=== PATIENT | female | born 1945 | race African-American/Black ===

== ENCOUNTER 2018-05-19 10:15 | Inpatient (IN) | payer MEDICARE, MEDICAID ==
--- NOTE | 2018-05-19 10:44 | ED Physician Chart ---
ED Chief Complaint/HPI - Patient Information Date Seen:: 05/19/18 Time Seen:: 10:40 Chief Complaint:: generalized weakness History of Present Illness:: Patient's had generalized weakness for one week with frequent falls. Allergies:: Allergies Allergy/AdvReac Type Severity Reaction Status Date / Time No Known Allergies Allergy Verified 05/19/18 10:22 Vitals:: Vital Signs - 8 hr 05/19/18 10:15 Temp 97.7 F HR 72 RR 16 BP 89/55 O2 Sat % 98 Historian:: Patient, EMS Review:: Transfer documents Reviewed ED Review of Systems - Review of Systems General/Constitutional: Weakness Skin: No skin lesions Head: No headache Eyes: No loss of vision ENT: No earache Neck: No neck pain, No swelling Cardio Vascular: No chest pain, No palpitations Pulmonary: No SOB, No cough GI: No nausea, No vomiting, No diarrhea G/U: No dysuria Musculoskeletal: No bone or joint pain, No back pain, No muscle pain Endocrine: No polyuria Psychiatric: No prior psych history Hematopoietic: No bruising Allergic/Immuno: No urticaria Neurological: No syncope ED Past Medical History - Past Medical History Past Medical History: HTN, Asthma/COPD, CVA/TIA, Arthritis Family History: HTN Social History: Smoker, Other (smokes one pack of cigarettes a day; formerly drank wine) Surgical History: other (gastric stapling) Psychiatricy History: None Medication: Reviewed Family Medical History - Family Member Mother History Unknown: Yes ED Physical Exam - Physical Examination General/Constitutional: Awake, Well-developed, well-nourished, Alert Other Gen/Cons comments:: States the date is 05/13/2017 Head: Atraumatic Eyes: Lids, conjuctiva normal, PERRL Skin: Nl inspection, No rash ENMT: External ears, nose nl, TM canals nl, Nasal exam nl, Oropharynx nl Other ENMT comments:: Edentulous Neck: No nuchal rigidity Respiratory: Nl effort/Exclusion, Clear to Auscultation, No Wheeze/Rhonchi/Rales Cardio Vascular: RRR GI: No organomegaly, No hernia, Normal BS's, Nondistended, No mass/bruits Other GI comments:: suprapubictenderness : No CVA tenderness Extremities: Normal digits & nails Neuro/Psych: No focal deficits Misc: Normal back ED Labs/Radiology/EKG Results - Lab Results Results: Laboratory Results WBC 8.2 Th/cmm (4.8-10.8) 05/19/18 10:51 RBC 3.99 Mil/cmm (3.80-5.20) 05/19/18 10:51 Hgb 12.3 gm/dL (12-16) 05/19/18 10:51 Hct 38.0 % (41.0-60) L 05/19/18 10:51 MCV 95.3 fl (81-100) 05/19/18 10:51 MCH 30.9 pg (27.0-31.0) 05/19/18 10:51 MCHC Differential 32.5 pg (28.0-36.0) 05/19/18 10:51 RDW 12.2 % (11.5-20.0) 05/19/18 10:51 Plt Count 185 Th/cmm (150-400) 05/19/18 10:51 MPV 9.6 fl 05/19/18 10:51 Neutrophils % 66.8 % (40.0-80.0) 05/19/18 10:51 Lymphocytes % 22.5 % (20.0-50.0) 05/19/18 10:51 Monocytes % 8.3 % (2.0-10.0) 05/19/18 10:51 Eosinophils % 1.8 % (0.0-5.0) 05/19/18 10:51 Basophils % 0.6 % (0.0-2.0) 05/19/18 10:51 Sodium 137 mEq/L (136-145) 05/19/18 10:51 Potassium 2.6 mEq/L (3.5-5.1) L* 05/19/18 10:51 Chloride 100 mEq/L (98-107) 05/19/18 10:51 Carbon Dioxide 23.1 mEq/L (21.0-31.0) 05/19/18 10:51 Anion Gap 16.5 (7.0-16.0) H 05/19/18 10:51 BUN 81 mg/dL (7-25) H* 05/19/18 10:51 Creatinine 3.4 mg/dL (0.6-1.2) H 05/19/18 10:51 Est GFR ( Amer) TNP 05/19/18 10:51 Est GFR (Non-Af Amer) TNP 05/19/18 10:51 BUN/Creatinine Ratio 23.8 05/19/18 10:51 Glucose 133 mg/dL (70-105) H 05/19/18 10:51 Calcium 9.9 mg/dL (8.6-10.3) 05/19/18 10:51 Magnesium 3.0 mg/dL (1.9-2.7) H 05/19/18 10:51 Urine Source RANDOM 05/19/18 11:00 Urine Color YELLOW 05/19/18 11:00 Urine Clarity HAZY (CLEAR) 05/19/18 11:00 Urine pH 6.0 (4.6 - 8.0) 05/19/18 11:00 Ur Specific [place] 1.010 (1.005-1.030) 05/19/18 11:00 Urine Protein NEGATIVE mg/dL (NEGATIVE) 05/19/18 11:00 Urine Glucose (UA) NEGATIVE mg/dL (NEGATIVE) 05/19/18 11:00 Urine Ketones NEGATIVE mg/dL (NEGATIVE) 05/19/18 11:00 Urine Blood NEGATIVE (NEGATIVE) 05/19/18 11:00 Urine Nitrate NEGATIVE (NEGATIVE) 05/19/18 11:00 Urine Bilirubin NEGATIVE (NEGATIVE) 05/19/18 11:00 Urine Urobilinogen 0.2 E.U./dL (0.2 - 1.0) 05/19/18 11:00 Ur Leukocyte Esterase NEGATIVE (NEGATIVE) 05/19/18 11:00 Urine RBC 0-2 /hpf (0-5) 05/19/18 11:00 Urine WBC 0-2 /hpf (0-5) 05/19/18 11:00 Ur Epithelial Cells FEW /lpf (FEW) 05/19/18 11:00 Urine Bacteria FEW /hpf (NONE SEEN) 05/19/18 11:00 - Radiology Results Results: Chest x-ray normal - EKG Interpretations Rate & Rhythm: normal sinus rhythm with a rate of 57 [place]: normal ED Septic Shock - <6hrs of presentation: Vital Signs: Vital Signs - 8 hr 05/19/18 10:15 Temp 97.7 F HR 72 RR 16 BP 89/55 O2 Sat % 98 ED Reassessment (Disposition) - Reassessment Reassessment Condition:: Unchanged - Diagnosis Diagnosis:: Hypokalemia; renal insufficiency; COPD; hypermagnesemia - Patient Disposition Admitted to:: Telemetry Admitting Medical Physician:: Herson Tabor Condition at Disposition:: Stable, Unchanged
[2018-05-19 10:55] LABS: % BASOPHILS 0.6 % (0.0-2.0); % EOSINOPHILS 1.8 % (0.0-5.0); % LYMPHOCYTES 22.5 % (20.0-50.0); % MONOCYTES 8.3 % (2.0-10.0); % NEUTROPHILS 66.8 % (40.0-80.0); EOSINOPHILE ABSOLUTE 0.1 Th/cmm (0.1-0.4); HEMOGLOBIN 12.3 gm/dL (12-16); LYMPHOCYTE ABSOLUTE 1.8 Th/cmm (1.5-3.0); MEAN CELL VOLUME 95.3 fl (81-100); MEAN CORPUSCULAR HEMOGLOBIN 30.9 pg (27.0-31.0); MEAN CORPUSCULAR HGB CONC 32.5 pg (28.0-36.0); MEAN PLATELET VOLUME 9.6 fl; MONOCYTE ABSOLUTE 0.7 Th/cmm (0.3-1.0); NEUTROPHILE ABSOLUTE 5.6 Th/cmm (1.8-8.0); PLATELET COUNT 185 Th/cmm (150-400); RED BLOOD COUNT 3.99 Mil/cmm (3.80-5.20); RED CELL DISTRIBUTION WIDTH 12.2 % (11.5-20.0); WHITE BLOOD COUNT 8.2 Th/cmm (4.8-10.8)
[2018-05-19 11:14] LABS: URINE SOURCE RANDOM
[2018-05-19 11:16] LABS: ANION GAP 16.5 (7.0-16.0); CALCIUM SERUM 9.9 mg/dL (8.6-10.3); CARBON DIOXIDE 23.1 mEq/L (21.0-31.0); CHLORIDE 100 mEq/L (98-107); CREATININE - SERUM 3.4 mg/dL (0.6-1.2); GLUCOSE 133 mg/dL (70-105); SODIUM SERUM 137 mEq/L (136-145)
[2018-05-19 11:16] LABS: URINE BILIRUBIN NEGATIVE (NEGATIVE); URINE BLOOD NEGATIVE (NEGATIVE); URINE GLUCOSE (UA) NEGATIVE (NEGATIVE); URINE KETONE NEGATIVE (NEGATIVE); URINE LEUKOCYTE ESTERASE NEGATIVE (NEGATIVE); URINE NITRATE NEGATIVE (NEGATIVE); URINE PROTEIN NEGATIVE (NEGATIVE); URINE UROBILINOGEN 0.2 E.U./dL (0.2 - 1.0)
[2018-05-19 11:23] LABS: BUN - UREA NITROGEN 81 mg/dL (7-25); POTASSIUM SERUM 2.6 mEq/L (3.5-5.1)
[2018-05-19 11:34] LABS: URINE CLARITY HAZY (CLEAR); URINE COLOR YELLOW; URINE MICROSCOPIC INDICATED? YES
[2018-05-19 11:39] LABS: URINE BACTERIA FEW /hpf (NONE SEEN); URINE EPITHELIAL CELLS FEW /lpf (FEW); URINE RBC 0-2 /hpf (0-5); URINE WBC 0-2 /hpf (0-5)
--- NOTE | 2018-05-19 11:50 | Diagnostic Imaging Report ---
CHEST X-RAY: AP view INDICATION: COPD COMPARISON: None FINDINGS: There is elevation of the right hemidiaphragm. Mild chronic lung changes are noted. There is no focal consolidation or pleural effusions The heart is normal in size. The osseous structures demonstrate no acute abnormalities. There appear to be Postsurgical changes of the upper abdomen. IMPRESSION: No focal airspace consolidation identified.
[2018-05-19] MEDS ORDERED: Maalox 30 mL Cup PO PRN (12:09)
--- NOTE | 2018-05-19 12:39 | History & Physical ---
ADMIT DATE: 05/19/2018 CHIEF COMPLAINT: Generalized weakness, multiple falls, patient's shortness of breath. HISTORY OF PRESENT ILLNESS: This is 72-year-old Afro-D[place] female with history of diabetes, hypertension, CVA, osteoarthritis, CAD, admitted from assisted living secondary to multiple falls. Unable to get out of bed. The patient did well in the ER, noted to have a COPD exacerbation, potassium of 2.6. The patient is being admitted for further management. PAST MEDICAL HISTORY: As mentioned in the history of present illness. PAST SURGICAL HISTORY: Status post ____. ALLERGIES: No known drug allergies. MEDICATIONS: The patient is on Benadryl, ibuprofen, ____, omeprazole, Depakote 5 mcg, eyedrops, Risperdal, trazodone. FAMILY HISTORY: Noncontributory. SOCIAL HISTORY: The patient is an avid smoker, used to drink, had used crack, did some labor work, one time with 4 children. REVIEW OF SYSTEMS: GENERAL: Complains not feeling well. HEENT: No blurred vision or pain. LUNGS: Diagnosis of asthma, the patient with possible chronic obstructive pulmonary disease. ABDOMEN: No nausea or vomiting. GENITOURINARY: The patient denies increased dysuria. NEUROLOGIC: No headache. PSYCHIATRIC: The patient has been falling. PHYSICAL EXAMINATION: VITAL SIGNS: Blood pressure 118/55, respirations 16, pulse 73, and temperature is 99.7, elderly female, appears older. NECK: Supple. No mass. LUNGS: Equal breath sounds, few rhonchi and wheezing. HEART: Regular rate and rhythm. Systolic ejection murmur. ABDOMEN: Soft, globular. EXTREMITIES: Positive excoriation. NEUROLOGIC: Limited. LABORATORY DATA: WBC 8, hemoglobin 12, platelets 185,000. Sodium 137, potassium 3.6, BUN 81, creatinine 3.4, glucose 133. ASSESSMENT AND PLAN: Multiple falls, generalized weakness, severe hypokalemia, acute chronic obstructive pulmonary disease exacerbation, hypertension, diabetes, history of stroke, osteoarthritis, CAD, hypertension, hypokalemia, chronic renal insufficiency, dehydration. We will provide gentle hydration. Continue calcium over the treatments. We will check the patient's liver function tests as well. I will empirically start the patient ____ we will review the patient's chest x-ray. We will continue to monitor the patient closely on telemetry. JOB# [id number]
[2018-05-19] MEDS ORDERED: POLYMYXIN B SULF SCH (13:00)
[2018-05-19] MEDS ORDERED: [UNRECOGNIZED DRUG - OTHER] SCH (13:00)
[2018-05-19] MEDS ORDERED: TRIMETHOPRIM SCH (13:00)
[2018-05-19] MEDS ORDERED: Potassium Chloride 40 MEQ, Lidocaine 1% 20mL Vial 25 MG in Sodium Chloride 0.9% 250 ML IV ONE (16:30)
[2018-05-19] MEDS: D5-0.45NS 1,000 ML IV SCH (16:32)
[2018-05-19] MEDS: cefTRIAXone 1 GM in Sodium Chloride 0.9% 50 ML IV SCH (16:39)
[2018-05-19 16:59] VITALS: BP 92/63
[2018-05-19] MEDS: Albuterol Nebulizer 2.5mg/3mL HHN SCH (19:48)
[2018-05-20] MEDS: DIFLUPREDNATE SCH (05:45)
[2018-05-20] MEDS: D5-0.45NS 1,000 ML IV SCH ×2 (05:45→14:16)
[2018-05-20 07:08] LABS: % BASOPHILS 0.1 % (0.0-2.0); % EOSINOPHILS 0.1 % (0.0-5.0); % LYMPHOCYTES 26.1 % (20.0-50.0); % MONOCYTES 2.5 % (2.0-10.0); % NEUTROPHILS 71.2 % (40.0-80.0); HEMATOCRIT 36.8 % (41.0-60); LYMPHOCYTE ABSOLUTE 1.7 Th/cmm (1.5-3.0); MEAN CELL VOLUME 94.8 fl (81-100); MEAN CORPUSCULAR HGB CONC 32.7 pg (28.0-36.0); MEAN PLATELET VOLUME 10.4 fl; MONOCYTE ABSOLUTE 0.2 Th/cmm (0.3-1.0); NEUTROPHILE ABSOLUTE 4.6 Th/cmm (1.8-8.0); PLATELET COUNT 183 Th/cmm (150-400); RED BLOOD COUNT 3.89 Mil/cmm (3.80-5.20); RED CELL DISTRIBUTION WIDTH 12.1 % (11.5-20.0)
[2018-05-20 07:19] LABS: WHITE BLOOD COUNT 6.5 Th/cmm (4.8-10.8)
[2018-05-20 07:21] LABS: ALB/GLOB RATIO 1.7 (1.0-1.8); ALBUMIN 4.4 gm/dL (3.7-5.3); ALKALINE PHOSPHATASE 63 U/L (34-104); ANION GAP 17.3 (7.0-16.0); BILIRUBIN,TOTAL 0.3 mg/dL (0.3-1.0); BUN - UREA NITROGEN 74 mg/dL (7-25); CALCIUM SERUM 10.1 mg/dL (8.6-10.3); CARBON DIOXIDE 20.1 mEq/L (21.0-31.0); CHLORIDE 105 mEq/L (98-107); CREATININE - SERUM 2.7 mg/dL (0.6-1.2); GLUCOSE 162 mg/dL (70-105); MAGNESIUM 2.8 mg/dL (1.9-2.7); POTASSIUM SERUM 3.4 mEq/L (3.5-5.1); SGOT 9 U/L (13-39); SGPT/ALT 7 U/L (7-52); SODIUM SERUM 139 mEq/L (136-145)
[2018-05-20] MEDS: Albuterol Nebulizer 2.5mg/3mL HHN SCH ×4 (07:22→18:54)
[2018-05-20] MEDS: Ipratropium Neb 0.5 mg/2.5 mL UD IH SCH ×4 (07:22→18:54)
[2018-05-20] MEDS: Pantoprazole 40 mg EC Tab PO SCH (08:38)
[2018-05-20] MEDS ORDERED: Non-Formulary Item 1 EA (Omeprazole [Omeprazole] 20 MG) PO SCH (09:00)
[2018-05-20] MEDS ORDERED: VTE Chemical Prophylaxis Screen/Admission MC PRN (09:56)
[2018-05-20] MEDS ORDERED: Probiotic Screen MC PRN (10:10)
--- NOTE | 2018-05-20 12:52 | Internal Medicine Prog Note ---
Internal Medicine Subjective - Subjective Patient seen and examined:: with staff, chart reviewed Patient is:: awake, verbal, interactive, ambulating, confused Patient Complaints of:: congestion Per staff patient has:: no adverse event, no episodes of fall, poor appetite, poor oral intake, unstable gait, tolerating meds Internal Medicine Objective - Results Result Diagrams: 05/20/18 06:15 05/20/18 06:15 Recent Labs: Laboratory Last Values WBC 6.5 Th/cmm (4.8-10.8) D 05/20/18 06:15 RBC 3.89 Mil/cmm (3.80-5.20) 05/20/18 06:15 Hgb 12.0 gm/dL (12-16) 05/20/18 06:15 Hct 36.8 % (41.0-60) L 05/20/18 06:15 MCV 94.8 fl (81-100) 05/20/18 06:15 MCH 31.0 pg (27.0-31.0) 05/20/18 06:15 MCHC Differential 32.7 pg (28.0-36.0) 05/20/18 06:15 RDW 12.1 % (11.5-20.0) 05/20/18 06:15 Plt Count 183 Th/cmm (150-400) 05/20/18 06:15 MPV 10.4 fl 05/20/18 06:15 Neutrophils % 71.2 % (40.0-80.0) 05/20/18 06:15 Lymphocytes % 26.1 % (20.0-50.0) 05/20/18 06:15 Monocytes % 2.5 % (2.0-10.0) 05/20/18 06:15 Eosinophils % 0.1 % (0.0-5.0) 05/20/18 06:15 Basophils % 0.1 % (0.0-2.0) 05/20/18 06:15 Sodium 139 mEq/L (136-145) 05/20/18 06:15 Potassium 3.4 mEq/L (3.5-5.1) L 05/20/18 06:15 Chloride 105 mEq/L (98-107) 05/20/18 06:15 Carbon Dioxide 20.1 mEq/L (21.0-31.0) L 05/20/18 06:15 Anion Gap 17.3 (7.0-16.0) H 05/20/18 06:15 BUN 74 mg/dL (7-25) H 05/20/18 06:15 Creatinine 2.7 mg/dL (0.6-1.2) H 05/20/18 06:15 Est GFR ( Amer) TNP 05/20/18 06:15 Est GFR (Non-Af Amer) TNP 05/20/18 06:15 BUN/Creatinine Ratio 27.4 05/20/18 06:15 Glucose 162 mg/dL (70-105) H 05/20/18 06:15 POC Glucose 96 MG/DL (70 - 105) 05/19/18 16:54 Calcium 10.1 mg/dL (8.6-10.3) 05/20/18 06:15 Magnesium 2.8 mg/dL (1.9-2.7) H 05/20/18 06:15 Total Bilirubin 0.3 mg/dL (0.3-1.0) 05/20/18 06:15 AST 9 U/L (13-39) L 05/20/18 06:15 ALT 7 U/L (7-52) 05/20/18 06:15 Alkaline Phosphatase 63 U/L (34-104) 05/20/18 06:15 B-Natriuretic Peptide 11.8 pg/mL (5.0-100.0) 05/20/18 06:15 Total Protein 7.0 gm/dL (6.0-8.3) 05/20/18 06:15 Albumin 4.4 gm/dL (3.7-5.3) 05/20/18 06:15 Globulin 2.6 gm/dL 05/20/18 06:15 Albumin/Globulin Ratio 1.7 (1.0-1.8) 05/20/18 06:15 TSH 1.89 uIU/ml (0.34-5.60) 05/20/18 06:15 Urine Source RANDOM 05/19/18 11:00 Urine Color YELLOW 05/19/18 11:00 Urine Clarity HAZY (CLEAR) 05/19/18 11:00 Urine pH 6.0 (4.6 - 8.0) 05/19/18 11:00 Ur Specific [place] 1.010 (1.005-1.030) 05/19/18 11:00 Urine Protein NEGATIVE mg/dL (NEGATIVE) 05/19/18 11:00 Urine Glucose (UA) NEGATIVE mg/dL (NEGATIVE) 05/19/18 11:00 Urine Ketones NEGATIVE mg/dL (NEGATIVE) 05/19/18 11:00 Urine Blood NEGATIVE (NEGATIVE) 05/19/18 11:00 Urine Nitrate NEGATIVE (NEGATIVE) 05/19/18 11:00 Urine Bilirubin NEGATIVE (NEGATIVE) 05/19/18 11:00 Urine Urobilinogen 0.2 E.U./dL (0.2 - 1.0) 05/19/18 11:00 Ur Leukocyte Esterase NEGATIVE (NEGATIVE) 05/19/18 11:00 Urine RBC 0-2 /hpf (0-5) 05/19/18 11:00 Urine WBC 0-2 /hpf (0-5) 05/19/18 11:00 Ur Epithelial Cells FEW /lpf (FEW) 05/19/18 11:00 Urine Bacteria FEW /hpf (NONE SEEN) 05/19/18 11:00 - Physical Exam Vitals and I&O: Vital Signs Temp 97 F 05/20/18 11:41 Pulse 77 05/20/18 11:41 Resp 18 05/20/18 11:41 BP 110/61 05/20/18 11:41 Pulse Ox 98 05/20/18 11:41 Intake & Output 05/19/18 05/20/18 05/20/18 18:59 06:59 18:59 Intake Total 200 200 Balance 200 200 Weight (lbs) 76.204 kg 76.204 kg Intake: Oral 200 200 Other: # Voids 1 1 Weight Source Bedscale Bedscale Active Medications: Current Medications Acetaminophen (Tylenol) 650 mg PO Q4H PRN PRN Reason: Pain Or Fever above 101 Stop: 07/18/18 12:08 Al Hydrox/Mg Hydrox/Simethicone (Maalox) 30 ml PO Q6H PRN PRN Reason: Dyspepsia Stop: 07/18/18 12:08 Albuterol Sulfate (Albuterol 2.5mg/3ml Neb Ud) 2.5 mg HHN QIDRT [facility] Stop: 07/18/18 14:59 Last Admin: 05/20/18 10:17 Dose: 2.5 mg Divalproex Sodium (Depakote Er) 500 mg PO HS [facility]; Protocol Stop: 07/18/18 20:59 Last Admin: 05/19/18 23:42 Dose: Not Given Heparin Sodium (Porcine) (Heparin) 5,000 units SUBQ Q12HR [facility] Stop: 07/18/18 20:59 Last Admin: 05/20/18 08:38 Dose: 5,000 units Ceftriaxone Sodium 1 gm/ (Sodium Chloride) 50 mls @ 100 mls/hr IV Q24HR [facility] Stop: 07/18/18 16:59 Last Admin: 05/19/18 16:39 Dose: 100 mls/hr Dextrose/Sodium Chloride (D5-0.45ns) 1,000 mls @ 80 mls/hr IV .[id number] [facility] Stop: 07/18/18 12:14 Last Admin: 05/20/18 05:45 Dose: Not Given Ipratropium [place] (Atrovent Neb 0.5mg/2.5ml) 0.5 mg IH QIDRT [facility] Stop: 07/18/18 14:59 Last Admin: 05/20/18 10:17 Dose: 0.5 mg Methylprednisolone Sodium Succinate (Solu-Medrol) 40 mg IVP Q8HR [facility] Stop: 07/19/18 12:59 Miscellaneous (Difluprednate [Durezol]) 5 ml .ROUTE Q2H [facility] Stop: 07/18/18 12:14 Last Admin: 05/20/18 05:45 Dose: Not Given Miscellaneous (Polymyxin B Sulf/Trimethoprim [Polymyxin B-Tmp Eye Drops]) 1 drop .ROUTE QID [facility] Stop: 07/18/18 12:59 Miscellaneous (Vte Chemical Prophylaxis Screen/ Admission) 1 ea PRN PRN PRN Reason: PROTOCOL Stop: 07/19/18 09:55 Miscellaneous (Probiotic Screen) 1 ea PRN PRN PRN Reason: PROTOCOL Stop: 07/19/18 10:09 Nitroglycerin (Nitrostat) 0.4 mg SL Q5MIN PRN PRN Reason: Chest Pain Stop: 07/18/18 12:08 Ondansetron HCl (Zofran) 4 mg IV Q8H PRN PRN Reason: Nausea / Vomiting Stop: 07/18/18 12:08 Pantoprazole Sodium (Protonix) 40 mg PO DAILY [facility] Stop: 07/19/18 08:59 Last Admin: 05/20/18 08:38 Dose: 40 mg Prazosin HCl (Minipress) 2 mg PO HS [facility] Stop: 07/18/18 20:59 Last Admin: 05/19/18 20:43 Dose: 2 mg Risperidone (Risperdal) 3 mg PO HS [facility]; Protocol Stop: 07/18/18 20:59 Last Admin: 05/19/18 23:42 Dose: Not Given Trazodone HCl (Desyrel) 100 mg PO HS [facility] Stop: 07/18/18 20:59 Zolpidem Tartrate (Ambien) 10 mg PO HS PRN PRN Reason: Insomnia Stop: 07/18/18 12:08 Last Admin: 05/19/18 20:43 Dose: 10 mg General: alert, appears older HEENT: NC/AT, PERRLA Neck: Supple Lungs: congested Cardiovascular: RRR, Normal S1, Normal S2, with murmur Abdomen: soft, non-tender, globular, non-distended, positive bowel sound Extremities: excoriation, contracture Neurological: no change, disorganized Internal Medicine Assmt/Plan - Assessment Assessment: ASSESSMENT AND PLAN: Multiple falls, generalized weakness, severe hypokalemia, acute chronic obstructive pulmonary disease exacerbation, hypertension, diabetes, history of stroke, osteoarthritis, CAD, hypertension, hypokalemia, chronic renal insufficiency, dehydration. - Plan Plan: PLAN: We will provide gentle hydration. Continue calcium over the treatments. We will check the patient's liver function tests as well. I will empirically start the patient _on iv abx___ we will review the patient's chest x-ray. We will continue to monitor the patient closely on telemetry.
[2018-05-20] MEDS: methylPREDNISolone SS 40 mg Vial IVP SCH ×2 (13:09→20:39)
[2018-05-20] MEDS: Prednisolone 1% Ophth Susp 5 mL Bottle EACH EYE SCH ×2 (15:04→20:39)
[2018-05-20] MEDS: cefTRIAXone 1 GM in Sodium Chloride 0.9% 50 ML IV SCH (16:12)
[2018-05-21] MEDS: D5-0.45NS 1,000 ML IV SCH (05:00)
[2018-05-21] MEDS: methylPREDNISolone SS 40 mg Vial IVP SCH ×3 (05:00→21:29)
[2018-05-21] MEDS: Ipratropium Neb 0.5 mg/2.5 mL UD IH SCH ×5 (06:30→19:37)
[2018-05-21] MEDS: Albuterol Nebulizer 2.5mg/3mL HHN SCH ×3 (06:31→19:34)
[2018-05-21 07:28] LABS: % BASOPHILS 0.1 % (0.0-2.0); % EOSINOPHILS 0.1 % (0.0-5.0); % LYMPHOCYTES 17.8 % (20.0-50.0); % MONOCYTES 4.9 % (2.0-10.0); % NEUTROPHILS 77.1 % (40.0-80.0); HEMATOCRIT 33.7 % (41.0-60); HEMOGLOBIN 11.2 gm/dL (12-16); MEAN CELL VOLUME 95.8 fl (81-100); MEAN CORPUSCULAR HEMOGLOBIN 31.8 pg (27.0-31.0); MEAN CORPUSCULAR HGB CONC 33.2 pg (28.0-36.0); MEAN PLATELET VOLUME 10.3 fl; MONOCYTE ABSOLUTE 0.5 Th/cmm (0.3-1.0); NEUTROPHILE ABSOLUTE 8.5 Th/cmm (1.8-8.0); PLATELET COUNT 187 Th/cmm (150-400); RED BLOOD COUNT 3.52 Mil/cmm (3.80-5.20); RED CELL DISTRIBUTION WIDTH 12.6 % (11.5-20.0)
[2018-05-21 07:38] LABS: ANION GAP 14.8 (7.0-16.0); BUN - UREA NITROGEN 61 mg/dL (7-25); CALCIUM SERUM 9.8 mg/dL (8.6-10.3); CARBON DIOXIDE 20.5 mEq/L (21.0-31.0); CHLORIDE 108 mEq/L (98-107); GLUCOSE 153 mg/dL (70-105); POTASSIUM SERUM 3.3 mEq/L (3.5-5.1); SODIUM SERUM 140 mEq/L (136-145)
[2018-05-21] MEDS: Prednisolone 1% Ophth Susp 5 mL Bottle EACH EYE SCH ×4 (09:00→21:42)
[2018-05-21] MEDS: Pantoprazole 40 mg EC Tab PO SCH (09:00)
--- NOTE | 2018-05-21 12:27 | History & Physical ---
ADMIT DATE: 05/21/2018 REQUESTING CONSULTATION: Herson Tabor D.O. REASON FOR CONSULTATION: History of psychosis. HISTORY OF PRESENT ILLNESS: This patient is a 72-year-old -Turk[place] woman, resident of ____ [facility]. Information obtained by directly interviewing the patient as well as reviewing the admission papers. As per the information, the patient is reported to have been feeling extremely weak and has been falling very frequently and also reported to have been on multiple medications and the Psychiatric consultation is called to address the issue. Chart is reviewed. The patient is interviewed. The patient has been diagnosed to have schizophrenia, chronic paranoid type and is being followed up on an outpatient basis. The patient is currently on Risperdal, trazodone, and Depakote. PAST PSYCHIATRIC HISTORY: Details are not known. MEDICAL HISTORY: The patient has a history of diabetes mellitus, hypertension, CVA, osteoarthritis, coronary artery disease and the patient at this time has been reported to have been having multiple falls. SUBSTANCE ABUSE HISTORY: None. PHYSICAL OR SEXUAL ABUSE HISTORY: None. LEGAL PROBLEMS: None at this time. MENTAL STATUS EXAMINATION: The patient is a 72-year-old thin built, superficially cooperative. Eye contact is poor. Mood is noted to be irritable. Affect is constricted. Insight and judgment is noted to be still impaired. Impulse control is noted to be limited. Coping skills are noted to be limited. The patient has paranoid delusions, but denies any command hallucinations. The patient has been on Risperdal 3 mg, which is going to be increased to change it to Risperdal at bedtime and initially it was changed from 3 mg to 2 mg. Trazodone has been decreased from 100 mg to 50 mg to closely monitor and depending on the patient's progress, the Depakote level is also going to be adjusted. The patient at this time is not presenting with any threats to harm self or others. DIAGNOSES AT THE TIME OF THE EVALUATION: Schizophrenia, chronic paranoid type. PLAN: To adjust the medications and closely monitor the patient. Thank you, Dr. Tabor for allowing me to participate in the care of the patient. JOB# [id number]
[2018-05-21] MEDS ORDERED: Potassium Chloride 20 mEq ER Tab PO ONE (12:37)
--- NOTE | 2018-05-21 12:39 | Internal Medicine Prog Note ---
Internal Medicine Subjective - Subjective Patient seen and examined:: with staff, chart reviewed Patient is:: awake, verbal, interactive, ambulating, confused Patient Complaints of:: congestion Per staff patient has:: no adverse event, no episodes of fall, poor appetite, poor oral intake, unstable gait, tolerating meds Internal Medicine Objective - Results Result Diagrams: 05/21/18 06:11 05/21/18 06:11 Recent Labs: Laboratory Last Values WBC 11.0 Th/cmm (4.8-10.8) H D 05/21/18 06:11 RBC 3.52 Mil/cmm (3.80-5.20) L 05/21/18 06:11 Hgb 11.2 gm/dL (12-16) L 05/21/18 06:11 Hct 33.7 % (41.0-60) L 05/21/18 06:11 MCV 95.8 fl (81-100) 05/21/18 06:11 MCH 31.8 pg (27.0-31.0) H 05/21/18 06:11 MCHC Differential 33.2 pg (28.0-36.0) 05/21/18 06:11 RDW 12.6 % (11.5-20.0) 05/21/18 06:11 Plt Count 187 Th/cmm (150-400) 05/21/18 06:11 MPV 10.3 fl 05/21/18 06:11 Neutrophils % 77.1 % (40.0-80.0) 05/21/18 06:11 Lymphocytes % 17.8 % (20.0-50.0) L 05/21/18 06:11 Monocytes % 4.9 % (2.0-10.0) 05/21/18 06:11 Eosinophils % 0.1 % (0.0-5.0) 05/21/18 06:11 Basophils % 0.1 % (0.0-2.0) 05/21/18 06:11 Sodium 140 mEq/L (136-145) 05/21/18 06:11 Potassium 3.3 mEq/L (3.5-5.1) L 05/21/18 06:11 Chloride 108 mEq/L (98-107) H 05/21/18 06:11 Carbon Dioxide 20.5 mEq/L (21.0-31.0) L 05/21/18 06:11 Anion Gap 14.8 (7.0-16.0) 05/21/18 06:11 BUN 61 mg/dL (7-25) H 05/21/18 06:11 Creatinine 2.0 mg/dL (0.6-1.2) H 05/21/18 06:11 Est GFR ( Amer) TNP 05/21/18 06:11 Est GFR (Non-Af Amer) TNP 05/21/18 06:11 BUN/Creatinine Ratio 30.5 05/21/18 06:11 Glucose 153 mg/dL (70-105) H 05/21/18 06:11 POC Glucose 96 MG/DL (70 - 105) 05/19/18 16:54 Calcium 9.8 mg/dL (8.6-10.3) 05/21/18 06:11 Magnesium 2.8 mg/dL (1.9-2.7) H 05/20/18 06:15 Total Bilirubin 0.3 mg/dL (0.3-1.0) 05/20/18 06:15 AST 9 U/L (13-39) L 05/20/18 06:15 ALT 7 U/L (7-52) 05/20/18 06:15 Alkaline Phosphatase 63 U/L (34-104) 05/20/18 06:15 B-Natriuretic Peptide 11.8 pg/mL (5.0-100.0) 05/20/18 06:15 Total Protein 7.0 gm/dL (6.0-8.3) 05/20/18 06:15 Albumin 4.4 gm/dL (3.7-5.3) 05/20/18 06:15 Globulin 2.6 gm/dL 05/20/18 06:15 Albumin/Globulin Ratio 1.7 (1.0-1.8) 05/20/18 06:15 TSH 1.89 uIU/ml (0.34-5.60) 05/20/18 06:15 Urine Source RANDOM 05/19/18 11:00 Urine Color YELLOW 05/19/18 11:00 Urine Clarity HAZY (CLEAR) 05/19/18 11:00 Urine pH 6.0 (4.6 - 8.0) 05/19/18 11:00 Ur Specific [place] 1.010 (1.005-1.030) 05/19/18 11:00 Urine Protein NEGATIVE mg/dL (NEGATIVE) 05/19/18 11:00 Urine Glucose (UA) NEGATIVE mg/dL (NEGATIVE) 05/19/18 11:00 Urine Ketones NEGATIVE mg/dL (NEGATIVE) 05/19/18 11:00 Urine Blood NEGATIVE (NEGATIVE) 05/19/18 11:00 Urine Nitrate NEGATIVE (NEGATIVE) 05/19/18 11:00 Urine Bilirubin NEGATIVE (NEGATIVE) 05/19/18 11:00 Urine Urobilinogen 0.2 E.U./dL (0.2 - 1.0) 05/19/18 11:00 Ur Leukocyte Esterase NEGATIVE (NEGATIVE) 05/19/18 11:00 Urine RBC 0-2 /hpf (0-5) 05/19/18 11:00 Urine WBC 0-2 /hpf (0-5) 05/19/18 11:00 Ur Epithelial Cells FEW /lpf (FEW) 05/19/18 11:00 Urine Bacteria FEW /hpf (NONE SEEN) 05/19/18 11:00 - Physical Exam Vitals and I&O: Vital Signs Temp 97.9 F 05/21/18 12:00 Pulse 69 05/21/18 12:00 Resp 18 05/21/18 12:00 BP 130/56 05/21/18 12:00 Pulse Ox 97 05/21/18 12:00 Intake & Output 05/20/18 05/21/18 05/21/18 18:59 06:59 18:59 Intake Total 300 1000 Balance 300 1000 Weight (lbs) 76.204 kg 76.204 kg Intake: Intake, IV Amount 1000 D5-0.45NS 1,000 ml @ 80 1000 mls/hr IV .[id number] [facility] Rx #:[id number] Oral 300 Other: # Voids 3 # Bowel Movements 0 Weight Source Bedscale Bedscale Active Medications: Current Medications Acetaminophen (Tylenol) 650 mg PO Q4H PRN PRN Reason: Pain Or Fever above 101 Stop: 07/18/18 12:08 Al Hydrox/Mg Hydrox/Simethicone (Maalox) 30 ml PO Q6H PRN PRN Reason: Dyspepsia Stop: 07/18/18 12:08 Albuterol Sulfate (Albuterol 2.5mg/3ml Neb Ud) 2.5 mg HHN QIDRT [facility] Stop: 07/18/18 14:59 Last Admin: 05/21/18 10:18 Dose: 2.5 mg Ciprofloxacin (Cipro 0.3% Ophth Soln) 1 drop EACH EYE Q4HWA [facility] Stop: 05/28/18 21:00 Last Admin: 05/21/18 09:00 Dose: 1 drop Divalproex Sodium (Depakote Er) 500 mg PO HS [facility]; Protocol Stop: 07/18/18 20:59 Last Admin: 05/19/18 23:42 Dose: Not Given Heparin Sodium (Porcine) (Heparin) 5,000 units SUBQ Q12HR [facility] Stop: 07/18/18 20:59 Last Admin: 05/21/18 09:00 Dose: 5,000 units Ceftriaxone Sodium 1 gm/ (Sodium Chloride) 50 mls @ 100 mls/hr IV Q24HR [facility] Stop: 07/18/18 16:59 Last Admin: 05/20/18 16:12 Dose: 100 mls/hr Dextrose/Sodium Chloride (D5-0.45ns) 1,000 mls @ 60 mls/hr IV .[id number] [facility] Stop: 07/20/18 12:44 Ipratropium [place] (Atrovent Neb 0.5mg/2.5ml) 0.5 mg IH QIDRT [facility] Stop: 07/18/18 14:59 Last Admin: 05/21/18 10:18 Dose: 0.5 mg Methylprednisolone Sodium Succinate (Solu-Medrol) 20 mg IVP Q8HR [facility] Stop: 07/20/18 12:59 Miscellaneous (Vte Chemical Prophylaxis Screen/ Admission) 1 ea PRN PRN PRN Reason: PROTOCOL Stop: 07/19/18 09:55 Miscellaneous (Probiotic Screen) 1 ea PRN PRN PRN Reason: PROTOCOL Stop: 07/19/18 10:09 Nitroglycerin (Nitrostat) 0.4 mg SL Q5MIN PRN PRN Reason: Chest Pain Stop: 07/18/18 12:08 Ondansetron HCl (Zofran) 4 mg IV Q8H PRN PRN Reason: Nausea / Vomiting Stop: 07/18/18 12:08 Pantoprazole Sodium (Protonix) 40 mg PO DAILY MAYELA Stop: 07/19/18 08:59 Last Admin: 05/21/18 09:00 Dose: 40 mg Potassium Chloride (Klor-Con) 20 meq PO X1 ONE Stop: 05/21/18 12:38 Prazosin HCl (Minipress) 2 mg PO HS MAYELA Stop: 07/18/18 20:59 Last Admin: 05/20/18 20:38 Dose: 2 mg Prednisolone Acetate (Pred Forte 1% Ophth Susp) 1 drop EACH EYE Q4HWA MAYELA Stop: 05/28/18 21:00 Last Admin: 05/21/18 09:00 Dose: 1 drop Risperidone (Risperdal) 2 mg PO HS MAYELA; Protocol Stop: 07/20/18 20:59 Trazodone HCl (Desyrel) 50 mg PO HS MAYELA; Protocol Stop: 07/19/18 20:59 Zolpidem Tartrate (Ambien) 10 mg PO HS PRN PRN Reason: Insomnia Stop: 07/18/18 12:08 Last Admin: 05/19/18 20:43 Dose: 10 mg General: alert, appears older HEENT: NC/AT, PERRLA Neck: Supple Lungs: congested Cardiovascular: RRR, Normal S1, Normal S2, with murmur Abdomen: soft, non-tender, globular, non-distended, positive bowel sound Extremities: excoriation, contracture Neurological: no change, disorganized Internal Medicine Assmt/Plan - Assessment Assessment: ASSESSMENT AND PLAN: Multiple falls, generalized weakness, severe hypokalemia, acute chronic obstructive pulmonary disease exacerbation, hypertension, diabetes, history of stroke, osteoarthritis, CAD, hypertension, hypokalemia, chronic renal insufficiency, dehydration. - Plan Plan: PLAN: We will provide gentle hydration. Continue calcium over the treatments. We will check the patient's liver function tests as well. I will empirically start the patient _on iv abx___ we will review the patient's chest x-ray. We will continue to monitor the patient closely on telemetry.
[2018-05-21] MEDS ORDERED: D5-0.45NS 1,000 ML IV SCH (12:45)
[2018-05-21] MEDS: cefTRIAXone 1 GM in Sodium Chloride 0.9% 50 ML IV SCH (16:53)
[2018-05-22] MEDS: methylPREDNISolone SS 40 mg Vial IVP SCH (05:47)
[2018-05-22 06:33] LABS: % BASOPHILS 0.1 % (0.0-2.0); % EOSINOPHILS 0.2 % (0.0-5.0); % LYMPHOCYTES 18.3 % (20.0-50.0); % MONOCYTES 6.3 % (2.0-10.0); % NEUTROPHILS 75.1 % (40.0-80.0); HEMOGLOBIN 10.7 gm/dL (12-16); LYMPHOCYTE ABSOLUTE 1.9 Th/cmm (1.5-3.0); MEAN CELL VOLUME 96.7 fl (81-100); MEAN CORPUSCULAR HEMOGLOBIN 31.3 pg (27.0-31.0); MEAN CORPUSCULAR HGB CONC 32.3 pg (28.0-36.0); MEAN PLATELET VOLUME 9.7 fl; MONOCYTE ABSOLUTE 0.6 Th/cmm (0.3-1.0); NEUTROPHILE ABSOLUTE 7.7 Th/cmm (1.8-8.0); PLATELET COUNT 173 Th/cmm (150-400); RED BLOOD COUNT 3.41 Mil/cmm (3.80-5.20); RED CELL DISTRIBUTION WIDTH 12.4 % (11.5-20.0); WHITE BLOOD COUNT 10.2 Th/cmm (4.8-10.8)
[2018-05-22] MEDS: Ipratropium Neb 0.5 mg/2.5 mL UD IH SCH ×2 (06:52→11:02)
[2018-05-22] MEDS: Albuterol Nebulizer 2.5mg/3mL HHN SCH ×2 (06:52→11:01)
[2018-05-22] MEDS: Prednisolone 1% Ophth Susp 5 mL Bottle EACH EYE SCH ×2 (08:39→12:06)
[2018-05-22] MEDS: Pantoprazole 40 mg EC Tab PO SCH (08:39)
[2018-05-22 09:26] LABS: ANION GAP 14.4 (7.0-16.0); BUN - UREA NITROGEN 45 mg/dL (7-25); CALCIUM SERUM 9.6 mg/dL (8.6-10.3); CARBON DIOXIDE 19.6 mEq/L (21.0-31.0); CHLORIDE 113 mEq/L (98-107); CREATININE - SERUM 1.5 mg/dL (0.6-1.2); GLUCOSE 136 mg/dL (70-105); MAGNESIUM 2.4 mg/dL (1.9-2.7); SODIUM SERUM 143 mEq/L (136-145)
--- NOTE | 2018-05-22 18:06 | Discharge Summary ---
DATE OF DISCHARGE: 05/22/2018 CHIEF COMPLAINT: Multiple falls and generalized weakness. FINAL DIAGNOSES: 1. Multiple falls and generalized weakness. 2. Possible sepsis. 3. Electrolyte abnormalities. 4. Acute chronic obstructive pulmonary disease exacerbation. 5. Hypertension. 6. Diabetes. 7. History of stroke. 8. Osteoarthritis. 9. Coronary artery disease. 10. Hypertension. 11. Renal insufficiency. 12. Dehydration. HISTORY: This is a 72-year-old -[place] female with history of diabetes, hypertension, stroke, osteoarthritis, admitted from nursing facility from assisted living ____ secondary to multiple falls. The patient is unable to get out of bed. The patient was evaluated in the ER and found to have COPD exacerbation and admitted for further management. The patient was slow. PHYSICAL EXAMINATION: VITAL SIGNS: Blood pressure 144/69, respirations 18, pulse rate 59, temperature 98.2. NECK: Supple. No mass. LUNGS: Equal breath sounds, few rhonchi. HEART: Regular rate and rhythm with systolic ejection murmur. ABDOMEN: Soft, globular. EXTREMITIES: Positive excoriation. NEUROLOGIC: Limited. HOSPITAL COURSE: The patient was admitted to telemetry, continued IV hydration and empiric IV antibiotic and IV steroids. White count came up to 11,000. Potassium is 2.6 on admission, BUN was 81 ____. The patient was referred to Psychiatry as well for adjustment of her psychotropic medications. Diet has been ____. The patient was referred to physical therapy. The patient cleared for discharge level of care. CONDITION ON DISCHARGE: Fair. DISCHARGE INSTRUCTIONS: The patient to be transferred to a correction facility in the interim and follow up with her consultants. JOB# [id number]
== END 2018-05-22 15:00 | DRG 872 ==
LOC: ER 10:15 → TELE 14:56
PROVIDERS: ADMIT Internal Medicine; ATTEND Internal Medicine
DX: A41.9 Sepsis, unspecified organism (principal); J44.1 Chronic obstructive pulmonary disease with (acute) exacerbation; F20.0 Paranoid schizophrenia; E83.41 Hypermagnesemia; E11.9 Type 2 diabetes mellitus without complications; M19.90 Unspecified osteoarthritis, unspecified site; F17.210 Nicotine dependence, cigarettes, uncomplicated; E87.6 Hypokalemia; I12.9 Hypertensive chronic kidney disease with stage 1 through stage 4 chronic kidney disease, or unspecified chronic kidney disease; I25.10 Atherosclerotic heart disease of native coronary artery without angina pectoris; E86.0 Dehydration; Z86.73 Personal history of transient ischemic attack (TIA), and cerebral infarction without residual deficits; Z91.81 History of falling; N18.3 Chronic kidney disease, stage 3 (moderate)
CPT/HCPCS: 36415-UA; 71045-TC; 80048-TC; 80053-TC; 81001-TC; 82948-90; 83036-90; 83735-TC; 83880-TC; 84443-TC; 85025-TC; 90779; 93005; 94640; 94760; 96375; J0696; J1644; J2001; J2650; J2920; J2930; J3480; J7613; X3904; Z7610